=== PATIENT | female | born 1955 | race African-American/Black ===

== ENCOUNTER 2017-09-06 14:07 | Emergency (ER) | payer OTHER ==
[~2017-09-06] VITALS: Ht 165.1 cm; Wt 68.7 kg
[~2017-09-06 14:07] MED LIST: ADULT LOW DOSE81 M1 PO; AMLODIPINE BESY10 MG PO; AMLODIPINE BESYL5 MG PO; CLONIDINE HCL0.1 MG PO; CLONIDINE HCL0.2 MG PO; HYDROCHLOROTHIA25 MG PO; LOPRESSOR100 M1 PO; LOPRESSOR50 MG PO; LORATADINE10 M2 PO; LOSARTAN POTAS100 MG PO; METOPROLOL TAR100 MG PO; PANTOPRAZOLE SO40 MG PO; PEG-3350 WITH4000 ML PO; SINGULAIR10 MG PO; TRAZODONE HCL100 MG PO; ZADITOR 0.100 DROP/5 BOTH EYES
[2017-09-06 15:42] VITALS: BP 197/86
[2017-09-06] MEDS ORDERED: NORCO 5/3251 TABLET PO (16:06)
[2017-09-06] MEDS ORDERED: IBUPROFEN800 MG PO (16:06)
== END 2017-09-06 16:50 | disposition home or self-care (01) ==
LOC: EME 14:07
PROC: 2W3RX1Z Immobilization of Left Lower Leg using Splint (ICD-10-PCS; principal; 2017-09-06)
DX: S82.842A Displaced bimalleolar fracture of left lower leg, initial encounter for closed fracture (principal); W17.89XA Other fall from one level to another, initial encounter; Y93.39 Activity, other involving climbing, rappelling and jumping off; Y92.89 Other specified places as the place of occurrence of the external cause; I10 Essential (primary) hypertension; F17.200 Nicotine dependence, unspecified, uncomplicated
CPT/HCPCS: 73590; 73610; 99281; 99284; J2270

== ENCOUNTER → 2017-09-17 | Outpatient (CLI) | payer OTHER ==
[~2017-09-17] MED LIST changes: +ATENOLOL50 MG PO; +CHLORTHALIDONE25 MG PO; +HYDROCODON-ACE1 EAC7 PO; +IBUPROFEN800 MG PO; +INHALER PRN; +LISINOPRIL10 MG PO; +NORCO 5/3251 TABLET PO; +VITAMIN D
== END | disposition home or self-care (01) ==
LOC: CDC 10:22
DX: Z01.810 Encounter for preprocedural cardiovascular examination (principal); S82.842A Displaced bimalleolar fracture of left lower leg, initial encounter for closed fracture; S93.312A Subluxation of tarsal joint of left foot, initial encounter; M25.572 Pain in left ankle and joints of left foot; R26.2 Difficulty in walking, not elsewhere classified; F17.210 Nicotine dependence, cigarettes, uncomplicated; R94.31 Abnormal electrocardiogram [ECG] [EKG]
CPT/HCPCS: 93000

== ENCOUNTER 2017-09-23 10:06 | Day surgery (SDC) | payer OTHER ==
[~2017-09-23] VITALS: Ht 165.1 cm; Wt 71.6 kg
[~2017-09-23 10:06] MED LIST changes: -LISINOPRIL10 MG PO
[2017-09-23] MEDS ORDERED: LISINOPRIL10 MG PO (10:45)
[2017-09-23 10:49] VITALS: BP 118/75
[2017-09-23 17:55] VITALS: BP 122/58
[2017-09-23 18:53] VITALS: BP 120/59
[2017-09-23 19:25] VITALS: BP 128/60
== END 2017-09-23 20:35 | disposition home or self-care (01) ==
LOC: SDC 10:06
DX: S82.842A Displaced bimalleolar fracture of left lower leg, initial encounter for closed fracture (principal); I10 Essential (primary) hypertension; J45.909 Unspecified asthma, uncomplicated; F17.210 Nicotine dependence, cigarettes, uncomplicated; W18.39XA Other fall on same level, initial encounter; Z82.49 Family history of ischemic heart disease and other diseases of the circulatory system; Z84.1 Family history of disorders of kidney and ureter; Z80.9 Family history of malignant neoplasm, unspecified
CPT/HCPCS: 73610; 76000; C1713; J0131; J0360; J0690; J1100; J1170; J1885; J2250; J2405; J3010; S0020